=== PATIENT | male | born 1945 | race Caucasian/White ===

== ENCOUNTER → 2018-08-24 | Outpatient (CLI) | payer MEDICARE, OTHER ==
[2018-08-24 14:48] LABS: BASOPHILS # (AUTO) 0.1 10^3/uL (0.0-0.1); BASOPHILS % (AUTO) 1 % (0-10); EOSINOPHILS # (AUTO) 0.4 10^3/uL (0.0-0.3); EOSINOPHILS % (AUTO) 4 % (0-10); HEMATOCRIT 53 % (40-54); LYMPHOCYTES # (AUTO) 2.2 X 10^3 (1.0-4.0); LYMPHOCYTES % (AUTO) 21 % (12-44); MEAN CORPUSCULAR HEMOGLOBIN 30 PG (25-34); MEAN CORPUSCULAR HGB CONC 34 G/DL (32-36); MEAN CORPUSCULAR VOLUME 88 FL (80-99); MEAN PLATELET VOLUME 10.6 FL (7.4-10.4); MONOCYTES # (AUTO) 0.9 X 10^3 (0.0-1.0); MONOCYTES % (AUTO) 9 % (0-12); NEUTROPHILS # (AUTO) 6.8 X 10^3 (1.8-7.8); NEUTROPHILS % (AUTO) 66 % (42-75); PLATELET COUNT 189 10^3/uL (130-400); RED CELL DISTRIBUTION WIDTH 15.6 % (10.0-14.5); WHITE BLOOD COUNT 10.4 10^3/uL (4.3-11.0)
--- NOTE | 2018-08-24 15:31 | Diagnostic Imaging Report ---
PROCEDURE: CT chest without contrast. TECHNIQUE: Multiple contiguous axial images were obtained through the chest without the use of intravenous contrast. INDICATION: Dyspnea and fatigue. Comparison is made to study of 01/02/2011. There has been development of extensive mixed interstitial and groundglass densities throughout the lungs. There is suggestion of septal thickening and possible early honeycombing is most pronounced in the lung peripheries of each lobe. There is no evidence of focal consolidation or solid mass. Occasional mildly prominent mediastinal lymph nodes and numerous dystrophic calcifications are similar to the previous study. There is also atherosclerotic calcification involving coronal arteries. There has been interval cholecystectomy. There is no significant pleural or pericardial fluid. IMPRESSION: Findings are consistent with interstitial lung disease and probable small airway disease. This may be on the basis of fibrosis, however, interstitial pneumonitis would have this appearance. This could be infectious or related to other inflammatory cause or even hypersensitivity pneumonitis. Clinical correlation is recommended. If indicated, bronchoscopic followup or short-term CT imaging may be of value. A discrete mass or pathologic adenopathy is not identified. Dictated by: Dictated on workstation # [id number]
[2018-08-24 16:02] LABS: ABG BASE EXCESS -6.8 MMOL/L (-2.5-2.5); ABG OXYGEN SATURATION 97 % (94-100); ABG PCO2 32 MMHG (35-45); ABG PH 7.36 (7.37-7.43); ABG PO2 78 MMHG (79-93); ABG TCO2 18.7 MMOL/L (21.0-31.0)
[2018-08-24 16:03] LABS: ALLENS TEST POSITIVE; INSPIRED O2 3; PATIENT TEMP 97.6; VENTILATOR YES
== END ==
LOC: RAD 14:22
PROVIDERS: ATTEND Nurse Practitioner Family
DX: C06.9 Malignant neoplasm of mouth, unspecified (principal); G25.81 Restless legs syndrome; G47.30 Sleep apnea, unspecified; R06.00 Dyspnea, unspecified; R53.83 Other fatigue
CPT/HCPCS: 36415; 36600; 71250; 82805; 85025

== ENCOUNTER → 2018-09-13 | Outpatient (CLI) | payer MEDICARE, OTHER ==
[~2018-09-13] MED LIST: RT-ALBUTEROL SULF 2.5 MG/3 ML PRE-MIX VIAL INH ONE; RT-ALBUTEROL SULF 2.5 MG/3 ML PRE-MIX VIAL ONE
== END ==
LOC: RT 11:08
PROVIDERS: ATTEND Nurse Practitioner Family
DX: R06.00 Dyspnea, unspecified (principal); R06.89 Other abnormalities of breathing; R53.83 Other fatigue; G47.30 Sleep apnea, unspecified; G25.81 Restless legs syndrome
CPT/HCPCS: 94060; 94726; 94729